=== PATIENT | female | born 1955 ===

== ENCOUNTER 2018-04-14 11:09 | Day surgery (SDC) | payer OTHER ==
[~2018-04-14] VITALS: Ht 165.1 cm; Wt 67.4 kg
[2018-04-14] MEDS ORDERED: THYROID MEDICATION (11:52)
== END 2018-04-14 15:44 | disposition home or self-care (01) ==
LOC: ORSCSDS 11:09
PROVIDERS: Orthopaedic Surgery
PROC: 0SBC4ZZ Excision of Right Knee Joint, Percutaneous Endoscopic Approach (ICD-10-PCS; principal; 2018-04-14 12:45)
DX: M23.200 Derangement of unspecified lateral meniscus due to old tear or injury, right knee (principal); M23.203 Derangement of unspecified medial meniscus due to old tear or injury, right knee; M94.261 Chondromalacia, right knee; M65.9 Synovitis and tenosynovitis, unspecified; E03.9 Hypothyroidism, unspecified; Z79.899 Other long term (current) drug therapy
CPT/HCPCS: J0171; J0690; J1100; J2250; J2405; J3010

== ENCOUNTER → 2018-10-26 | Outpatient (CLI) | payer OTHER ==
[~2018-10-26] MED LIST: THYROID MEDICATION
== END | disposition home or self-care (01) ==
LOC: LAB EV 12:01 → LAB SHORT 12:01
DX: N39.0 Urinary tract infection, site not specified (principal)
CPT/HCPCS: 87077; 87086; 87186

== ENCOUNTER → 2021-07-10 | Outpatient (CLI) | payer MEDICARE ==
[~2021-07-10] MED LIST changes: +DHEA25 M1 PO; +DOXYLAMINE SUCCINATE PO; +METO25ER PO; +MVI PO; +SYNTHROID50 MC1 PO; +VITAMIN D31000 UNI1 PO; +Vitamin K100 MCG PO; +XARELTO20 MG PO; +ZINC GLUCONATE PO
[2021-07-10 15:38] LABS: BASOPHILS ABSOLUTE AUTO 0.06 K/mm3 (0.00-0.23); BASOPHILS PERCENT AUTO 1 % (0-2); EOSINOPHILS ABSOLUTE AUTO 0.03 K/mm3 (0.00-0.68); EOSINOPHILS PERCENT AUTO 1 % (0-6); Hematocrit 44.8 % (33.0-51.0); Hemoglobin 15.1 g/dL (11.5-16.0); IMMATURE GRAN ABSOLUTE AUTO 0.01 K/mm3 (0.00-0.10); IMMATURE GRAN PERCENT AUTO 0 % (0-1); LYMPHOCYTES ABSOLUTE AUTO 1.85 K/mm3 (0.84-5.20); LYMPHOCYTES PERCENT AUTO 33 % (21-46); MONOCYTES ABSOLUTE AUTO 0.47 K/mm3 (0.16-1.47); MONOCYTES PERCENT AUTO 8 % (4-13); Mean Corpuscular HGB 33.9 pg (26.0-34.0); Mean Corpuscular HGB Conc 33.7 g/dL (31.5-36.5); Mean Corpuscular Volume 101 fL (80-100); Mean Platelet Volume 10.6 fL (9.1-12.4); NEUTROPHILS ABSOLUTE AUTO 3.22 K/mm3 (1.96-9.15); NEUTROPHILS PERCENT AUTO 57 % (41-73); Platelet Count 240 K/mm3 (150-400); RDW Coefficient Variation 11.9 % (11.7-14.2); RDW Standard Deviation 43.9 fL (35.1-46.3); Red Blood Cell Count 4.45 M/mm3 (3.80-5.20); White Blood Cell Count 5.64 K/mm3 (4.00-11.30)
[2021-07-10 15:53] LABS: International Normalized Ratio 1.06; Prothrombin Time Results 11.4 Sec (9.7-11.5)
[2021-07-10 16:25] LABS: Magnesium, Blood 1.9 mg/dL (1.6-2.4)
[2021-07-10 16:28] LABS: Anion Gap 6 mmol/L (6-16); Blood Urea Nitrogen 21 mg/dL (8-24); Bun/Creatinine Ratio 27.7 (12.0-20.0); CO2, Blood 26 mmol/L (21-32); Calcium, Blood 9.7 mg/dL (8.5-10.1); Chloride, Blood 107 mmol/L (98-108); Creatinine, Blood 0.76 mg/dL (0.40-1.00); Glomerular Filtration Rate >60 (60-); Glucose, Blood 88 mg/dL (70-99); Sodium, Blood 139 mmol/L (136-145)
== END | disposition home or self-care (01) ==
LOC: LAB 14:48 → LAB SHORT 14:48
PROVIDERS: Internal Medicine Cardiovascular Disease
DX: I48.91 Unspecified atrial fibrillation (principal); I47.2 Ventricular tachycardia; R06.00 Dyspnea, unspecified; R00.2 Palpitations
CPT/HCPCS: 36415; 80048; 83735; 85025; 85610

== ENCOUNTER 2021-07-11 06:17 | Day surgery (SDC) | payer MEDICARE ==
--- NOTE | 2021-07-11 07:41 | NUR ---
PT TOLERATED THREE 200J SYNCHRONIZED SHOCKS WELL.
--- NOTE | 2021-07-11 07:44 | NUR ---
PT AWAKENING AND TALKING WITH DR MONTGOMERY.
--- NOTE | 2021-07-11 08:02 | NUR ---
PT SITTING UP DRINKING WATER AND COFFEE.
--- NOTE | 2021-07-11 08:09 | NUR ---
DR ROMO IN ROOM TO SEE PT. DISCHARGE INSTRUCTIONS REVIEWED ALL QUESTIONS ANSWERED.
--- NOTE | 2021-07-11 08:30 | NUR ---
20 G IV DISCONTINUED FROM RIGHT AC WITH INTACT CANNULA. PT ESCORTED OUT VIA WHEELCHAIR ESCORT.
== END 2021-07-11 23:55 | disposition home or self-care (01) ==
LOC: MHTC 06:17 → ORSCMMR 06:30 → ORD 07:30 → MHTC 23:55
DX: I48.91 Unspecified atrial fibrillation (principal); R06.00 Dyspnea, unspecified; E03.9 Hypothyroidism, unspecified; E78.5 Hyperlipidemia, unspecified; F10.10 Alcohol abuse, uncomplicated; I10 Essential (primary) hypertension; E66.3 Overweight; Z79.01 Long term (current) use of anticoagulants; Z87.891 Personal history of nicotine dependence; Z82.49 Family history of ischemic heart disease and other diseases of the circulatory system; Z85.41 Personal history of malignant neoplasm of cervix uteri; Z68.26 Body mass index [BMI] 26.0-26.9, adult
CPT/HCPCS: 92960; 93005; 93010; J2704; J7030

== ENCOUNTER → 2024-12-08 | Outpatient (CLI) | payer MEDICARE ==
[2024-12-08 15:20] LABS: Stool Occult Bld Immuno 1 Negative (NEGATIVE)
== END | disposition home or self-care (01) ==
LOC: LAB SHORT 13:20 → LAB 13:20 → LAB FUT 11-18 09:50
PROVIDERS: Nurse Practitioner Family
DX: Z00.00 Encounter for general adult medical examination without abnormal findings (principal); Z12.11 Encounter for screening for malignant neoplasm of colon; K59.00 Constipation, unspecified
CPT/HCPCS: G0328